=== PATIENT | female | born 1940 ===

== ENCOUNTER 2022-10-16 12:45 | Outpatient (CLI) | payer OTHER | END 2022-10-16 15:52 | disposition home or self-care (01) | LOC: RAD 12:45 | PROVIDERS: ATTEND Orthopaedic Surgery | DX: M80.011A Age-related osteoporosis with current pathological fracture, right shoulder, initial encounter for fracture (principal); S42.344A Nondisplaced spiral fracture of shaft of humerus, right arm, initial encounter for closed fracture ==

== ENCOUNTER 2022-11-08 10:33 | Outpatient (CLI) | payer OTHER | END 2022-11-08 13:04 | disposition home or self-care (01) | LOC: RAD 10:33 | PROVIDERS: ATTEND Orthopaedic Surgery | DX: M80.011A Age-related osteoporosis with current pathological fracture, right shoulder, initial encounter for fracture (principal) ==